=== PATIENT | female | born 1960 | race Caucasian/White ===

== ENCOUNTER → 2023-08-16 16:41 | Outpatient (REF) | payer OTHER, SELFPAY | LOC: RAD 16:41 | PROVIDERS: ATTENDING PHYSICIAN Physician Assistant | DX: J45.909 Unspecified asthma, uncomplicated (principal); R05.3 Chronic cough | CPT/HCPCS: 71046 ==

== ENCOUNTER → 2023-10-03 09:37 | Outpatient (REF) | payer OTHER, SELFPAY | LOC: HWWDC 09:37 | PROVIDERS: ATTENDING PHYSICIAN Obstetrics & Gynecology; FAMILY PHYSICIAN Family Medicine | DX: M85.80 Other specified disorders of bone density and structure, unspecified site (principal); Z12.31 Encounter for screening mammogram for malignant neoplasm of breast | CPT/HCPCS: 77063; 77067; 77080 ==

== ENCOUNTER 2024-11-02 06:32 | Day surgery (SDC) | payer OTHER, SELFPAY | END 2024-11-02 15:35 | disposition home or self-care (01) | LOC: GI 06:32 | PROVIDERS: ATTENDING PHYSICIAN Internal Medicine Gastroenterology | DX: Z12.11 Encounter for screening for malignant neoplasm of colon (principal); R12 Heartburn; R49.0 Dysphonia | CPT/HCPCS: 43235; G0105 ==

== ENCOUNTER → 2025-01-03 09:08 | Outpatient (REF) | payer OTHER, SELFPAY | LOC: HWWDC 09:08 | PROVIDERS: ATTENDING PHYSICIAN Obstetrics & Gynecology; FAMILY PHYSICIAN Physician Assistant | DX: Z12.31 Encounter for screening mammogram for malignant neoplasm of breast (principal) | CPT/HCPCS: 77063; 77067 ==